=== PATIENT | female | born 1960 | race Caucasian/White ===

== ENCOUNTER 2016-07-08 11:03 | Day surgery (SDC) | payer OTHER ==
[2016-07-05 12:47] VITALS: BP 145/101
[~2016-07-08] VITALS: Ht 167.6 cm; Wt 130.0 kg
[~2016-07-08 11:03] MED LIST: BUPIVACAINE/PF-EPI 0.5% 1:200K ONE; THYR90TA PO
[2016-07-08] MEDS ORDERED: FENTANYL PF 250 MCG/5ML ONE (11:25)
[2016-07-08] MEDS ORDERED: MIDAZOLAM 1 MG/ML, 2ML ONE (11:26)
[2016-07-08] MEDS ORDERED: LACTATED RINGERS 1,000 ML IV SCH (11:47)
[2016-07-08 11:50] VITALS: BP 145/101
[2016-07-08] MEDS ORDERED: hydrALAzine 20 MG/ML, 1ML IV PRN (12:30)
[2016-07-08] MEDS ORDERED: PROMETHAZINE 25 MG/ML, 1ML IV PRN (12:30)
[2016-07-08] MEDS ORDERED: OXYcodone 5 MG/5 ML ORAL.SOL UDC PO PRN (12:30)
[2016-07-08] MEDS ORDERED: FENTANYL PF 100 MCG/2ML IV PRN (12:30)
[2016-07-08] MEDS ORDERED: METOCLOPRAMIDE 5 MG/ML, 2ML IV PRN (12:30)
[2016-07-08] MEDS ORDERED: ACETAMINOPHEN 325 MG TABLET PO PRN (12:30)
[2016-07-08] MEDS ORDERED: LABETALOL 5MG/ML, 20ML IV PRN (12:30)
[2016-07-08] MEDS ORDERED: HYDROmorphone 1 MG/ML, 1ML IV PRN (12:30)
[2016-07-08] MEDS ORDERED: MEPERIDINE/PF 25MG/0.5ML IVPush PRN (12:30)
[2016-07-08] MEDS ORDERED: ONDANSETRON 2MG/ML, 2ML IVPush PRN (12:30)
[2016-07-08] MEDS ORDERED: SILVER SULF. CRM 1%, 50GM ONE (12:43)
[2016-07-08] MEDS ORDERED: OXYcodone 5 MG/5 ML ORAL.SOL UDC ONE (13:36)
[2016-07-08] MEDS ORDERED: ACETAMINOPHEN 325 MG TABLET ONE (13:36)
[2016-07-08] MEDS ORDERED: ACETAMINOPHEN 650 MG/20.3 ML UDC ONE (13:36)
[2016-07-08] MEDS ORDERED: PROPOFOL 10 MG/ML, 20ML ONE (15:11)
[2016-07-08] MEDS ORDERED: CEFAZOLIN 1,000 MG ONE (15:11)
[2016-07-08] MEDS ORDERED: ONDANSETRON 2MG/ML, 2ML ONE (15:11)
[2016-07-08] MEDS ORDERED: DEXAMETHASONE 4 MG/ML, 1ML ONE (15:11)
== END 2016-07-08 15:40 | disposition home or self-care (01) ==
LOC: OUT 11:03
PROVIDERS: ATTEND Surgery
DX: K60.1 Chronic anal fissure (principal); K64.4 Residual hemorrhoidal skin tags; K64.2 Third degree hemorrhoids; E03.9 Hypothyroidism, unspecified; E66.01 Morbid (severe) obesity due to excess calories; Z68.42 Body mass index [BMI] 45.0-49.9, adult; Z85.54 Personal history of malignant neoplasm of ureter; Z72.89 Other problems related to lifestyle; Z82.49 Family history of ischemic heart disease and other diseases of the circulatory system; Z80.49 Family history of malignant neoplasm of other genital organs
CPT/HCPCS: 46255; 88304; J0690; J1100; J2250; J2405; J2704; J3010; J7120

== ENCOUNTER → 2017-03-29 | Outpatient (CLI) | payer OTHER ==
[~2017-03-29] MED LIST changes: -BUPIVACAINE/PF-EPI 0.5% 1:200K ONE; +CALC-47 PO; +CHOL200074 PO; +CITRICEL PO; +CLOB15CR19 TP; +FLUO40CA2 PO; +LORA10TA3 PO; +PROG100C16 PO; +THYR60TA PO
== END ==
LOC: STAR 12:05
PROVIDERS: ATTEND Surgery
DX: Z02.9 Encounter for administrative examinations, unspecified (principal)

== ENCOUNTER 2017-04-07 10:02 | Day surgery (SDC) | payer OTHER ==
[2017-03-29 12:26] VITALS: BP 126/90
[~2017-04-07] VITALS: Ht 167.6 cm; Wt 120.2 kg
[2017-04-07] MEDS ORDERED: LACTATED RINGERS 1,000 ML IV SCH (10:28)
[2017-04-07 10:29] VITALS: BP 126/90
[2017-04-07] MEDS ORDERED: MIDAZOLAM 1 MG/ML, 2ML ONE (11:55)
[2017-04-07] MEDS ORDERED: SUCCINYLCHOLINE 20 MG/ML, 10ML ONE (11:55)
[2017-04-07] MEDS ORDERED: PROPOFOL 10 MG/ML, 20ML ONE ×2 (11:55)
[2017-04-07] MEDS ORDERED: ROCURONIUM 10 MG/ML,10ML ONE (11:55)
[2017-04-07] MEDS ORDERED: CEFAZOLIN 1,000 MG ONE (12:00)
[2017-04-07] MEDS ORDERED: ALBUTEROL SULFATE 200 PUFFS/8.5 GR INH ONE (12:00)
[2017-04-07] MEDS ORDERED: OXYcodone 5 MG/5 ML ORAL.SOL UDC PO PRN (12:00)
[2017-04-07] MEDS ORDERED: EPHEDRINE 50 MG/ML, 1ML IVPush PRN (12:00)
[2017-04-07] MEDS ORDERED: KETOROLAC 30 MG/1 ML IV PRN (12:00)
[2017-04-07] MEDS ORDERED: ONDANSETRON 2MG/ML, 2ML IVPush PRN (12:00)
[2017-04-07] MEDS ORDERED: HYDROcodone/APAP 7.5-325MG/15ML UDC PO PRN (12:00)
[2017-04-07] MEDS ORDERED: LABETALOL 5MG/ML, 20ML IV PRN (12:00)
[2017-04-07] MEDS ORDERED: ALBUTEROL SULFATE 2.5 MG/3 ML NPPB PRN (12:00)
[2017-04-07] MEDS ORDERED: PROMETHAZINE 25 MG/ML, 1ML IV PRN (12:00)
[2017-04-07] MEDS ORDERED: METOCLOPRAMIDE 5 MG/ML, 2ML IV PRN (12:00)
[2017-04-07] MEDS ORDERED: HYDROmorphone 1 MG/ML, 1ML IV PRN (12:00)
[2017-04-07] MEDS ORDERED: hydrALAzine 20 MG/ML, 1ML IV PRN (12:00)
[2017-04-07] MEDS ORDERED: ACETAMINOPHEN 325 MG TABLET PO PRN (12:00)
[2017-04-07] MEDS ORDERED: METOPROLOL 1 MG/ML, 5ML IV PRN (12:00)
[2017-04-07] MEDS ORDERED: DEXAMETHASONE 4 MG/ML, 1ML ONE (12:21)
[2017-04-07] MEDS ORDERED: FENTANYL PF 100 MCG/2ML ONE ×2 (12:21→13:35)
[2017-04-07] MEDS ORDERED: ONDANSETRON 2MG/ML, 2ML ONE (12:21)
[2017-04-07] MEDS ORDERED: METOPROLOL 1 MG/ML, 5ML ONE (13:04)
[2017-04-07] MEDS ORDERED: hydrALAzine 20 MG/ML, 1ML ONE (13:09)
[2017-04-07] MEDS ORDERED: ACETAMINOPHEN 650 MG/20.3 ML UDC ONE (13:26)
[2017-04-07] MEDS ORDERED: OXYcodone 5 MG/5 ML ORAL.SOL UDC ONE (13:27)
[2017-04-07] MEDS ORDERED: KETOROLAC 30 MG/1 ML ONE (13:27)
[2017-04-07] MEDS: FENTANYL PF 100 MCG/2ML IV PRN ×2 (13:38→13:50)
[2017-04-07] MEDS ORDERED: KETOROLAC 30 MG/1 ML IVPush ONE (16:00)
== END 2017-04-07 15:50 ==
LOC: OUT 10:02
PROVIDERS: ATTEND Surgery
DX: I83.811 Varicose veins of right lower extremity with pain (principal); F17.210 Nicotine dependence, cigarettes, uncomplicated; E03.9 Hypothyroidism, unspecified; E66.01 Morbid (severe) obesity due to excess calories; Z68.41 Body mass index [BMI] 40.0-44.9, adult; Z72.89 Other problems related to lifestyle; Z85.6 Personal history of leukemia
CPT/HCPCS: 37761; J0330; J0360; J0690; J1100; J1885; J2250; J2405; J2704; J3010; J7120